=== PATIENT | male | born 1930 | race Caucasian/White ===

== ENCOUNTER 2017-08-24 06:58 | Outpatient (RCR) | payer MEDICARE, OTHER ==
[~2017-08-24 06:58] MED LIST: ASPIR-TRIN325 MG PO; AVODART0.5 MG PO; CARDURA8 MG PO; CENTRUM SILVER1 EAC3 PO; FUROSEMIDE20 MG PO; INSULIN BASAGLAR SQ; LANTUS 3ML100 UNITS/ SQ; LANTUS100 UNITS/ SQ; LIPITOR20 MG PO; LOPRESSOR25 MG PO; METOLAZONE5 MG PO; METOPROLOL TART50 MG PO; NOVOLOG100 UNITS1; PROBIOTIC & AC1 EACH PO; SPIRONOLACTONE50 MG PO; VITAMIN D22000 UNIT PO; VITAMIN D32000 UNIT PO
== END 2017-09-09 ==
LOC: PT 06:58
PROVIDERS: ATTEND Specialist
DX: S33.5XXA Sprain of ligaments of lumbar spine, initial encounter (principal); M54.5 Low back pain; M62.81 Muscle weakness (generalized)
CPT/HCPCS: 97110 ×5; G8978; G8979

== ENCOUNTER → 2018-04-08 | Outpatient (CLI) | payer MEDICARE, OTHER ==
--- NOTE | 2018-04-08 10:51 | Diagnostic Imaging Report ---
PROCEDURE:US RETROPERITONEAL ( KIDNEY ). COMPARISON:None. INDICATIONS:CKD STAGE 3 TECHNIQUE: Heard-scale and color sonographic images of the bilateral kidneys and bladder where obtained in transverse and longitudinal planes. FINDINGS: Somewhat limited evaluation due to overlying bowel and body habitus. RIGHT KIDNEY: 9.8 cm, cortex 2.4 cm. Cysts: None Solid masses: None Stones: None Hydronephrosis: None Echogenicity: Unremarkable LEFT KIDNEY: 10.1 cm, cortex 1.7 cm Cysts: None Solid masses: None Stones: None Hydronephrosis: None Echogenicity: Unremarkable Bladder: Bilateral ureteral jets noted. Prostate: Enlarged measuring up to 5.4 cm; volume of 68.8 cc CONCLUSION: Unremarkable renal ultrasound. No evidence of hydronephrosis. Enlarged prostate measuring up to 5.4 cm. Dictated by: ROMY NAVA M.D. on 04/08/2018 at 10:57 Electronically approved by: ROMY NAVA M.D. on 04/08/2018 at 10:57
== END ==
LOC: US 08:58
PROVIDERS: ATTEND Specialist
DX: N18.3 Chronic kidney disease, stage 3 (moderate) (principal)
CPT/HCPCS: 76770

== ENCOUNTER → 2018-11-07 | Outpatient (RCR) | payer MEDICARE, OTHER | LOC: PT 11-05 07:54 | PROVIDERS: ATTEND Specialist | DX: M17.11 Unilateral primary osteoarthritis, right knee (principal); M25.561 Pain in right knee; M62.81 Muscle weakness (generalized); R26.2 Difficulty in walking, not elsewhere classified ==

== ENCOUNTER 2018-12-06 08:00 | Outpatient (RCR) | payer MEDICARE, OTHER | END 2018-12-08 | LOC: PT 08:00 | PROVIDERS: ATTEND Specialist | DX: M17.11 Unilateral primary osteoarthritis, right knee (principal) ==

== ENCOUNTER 2019-01-06 08:58 | Outpatient (RCR) | payer MEDICARE, OTHER | END 2019-01-07 | LOC: PT 08:58 | PROVIDERS: ATTEND Specialist | DX: M17.11 Unilateral primary osteoarthritis, right knee (principal); M17.12 Unilateral primary osteoarthritis, left knee; M25.561 Pain in right knee; M62.81 Muscle weakness (generalized); R26.2 Difficulty in walking, not elsewhere classified ==

== ENCOUNTER → 2019-02-07 | Outpatient (RCR) | payer MEDICARE, OTHER | LOC: PT 01-08 11:07 | PROVIDERS: ATTEND Specialist | DX: M17.0 Bilateral primary osteoarthritis of knee (principal); M25.562 Pain in left knee; M25.561 Pain in right knee; M62.81 Muscle weakness (generalized) ==

== ENCOUNTER 2019-02-26 08:00 | Outpatient (RCR) | payer MEDICARE, OTHER | END 2019-03-09 | LOC: PT 08:00 | PROVIDERS: ATTEND Specialist | DX: M17.0 Bilateral primary osteoarthritis of knee (principal); M25.562 Pain in left knee; M25.561 Pain in right knee; M62.81 Muscle weakness (generalized); R26.2 Difficulty in walking, not elsewhere classified | CPT/HCPCS: 97139 ==